=== PATIENT | female | born 1995 | race Caucasian/White ===

== ENCOUNTER 2016-08-17 11:19 | Emergency (ER) | payer MEDICAID ==
[~2016-08-17] VITALS: Ht 160 cm; Wt 60.0 kg
[~2016-08-17 11:19] MED LIST: BCP PO; NORE1TAB57 PO; ZOFR4TAB3 SL
[2016-08-17 11:29] VITALS: BP 136/68; PULSE 90; RESP 15; TEMP 99.1; O2SAT 100
[2016-08-17] MEDS ORDERED: CLIN1CAP5 PO (12:23)
--- NOTE | 2016-08-17 12:23 | PD ---
HPI Chief Complaint: Bite or Sting Time Seen by Provider: 12:19 Travel History International Travel<30 days: No Contact w/Intl Traveler<30days: No Traveled to known affect area: No History of Present Illness HPI Patient presents with concerns of an insect bite on her left upper forearm overnight. Reports pain upon awakening this morning with erythema around the bite. Denies nausea vomiting diarrhea or fever. Denies . PFSH Past Medical History Hx Anticoagulant Therapy: No Anxiety: Yes Cardiovascular Problems: No Chemotherapy: No Cerebrovascular Accident: No Developmental Delay: No Diabetes: No Diminished Hearing: No Endocrine: No Gastrointestinal Disorders: Yes (IBS) GERD: Yes Genitourinary: Yes (Frequent UTI's) Kidney Stones: Yes (Lithotripsy ) Musculoskeletal: No Neurologic: No Respiratory: No Immunizations Current: Yes Thyroid Disease: No Tetanus Vaccination: Unknown Influenza Vaccination: No ?: Unknown LMP: 3 WEEKS : 0 Past Surgical History Abdominal Surgery: Yes (LAPAROSCOPY) Cholecystectomy: Yes Genitourinary Surgery: Yes (KIDNEY STONES) Hysterectomy: No Other Surgery: Yes (gall bladder removed) Social History Alcohol Use: No Tobacco Use: No Substance Use: No Allergies-Medications (Allergen,Severity, Reaction): Coded Allergies: Sulfa (Verified Allergy, Severe, Rash, 08/17/16) Reported Meds & Prescriptions Reported Meds & Active Scripts Active Zofran Odt (Ondansetron Odt) 4 Mg Tab 4 Mg SL Q6HR PRN Reported Loestrin 1.5/30 (Norethindrone-Ethinyl Estradiol) 1.5-30 Mg-Mcg Tab 1 Tab PO DAILY [Bcp] 1 Tab PO DAILY Review of Systems General / Constitutional: No: Fever Eyes: No: Visual changes HENT: No: Headaches Cardiovascular: No: Chest Pain or Discomfort Respiratory: No: Shortness of Breath Gastrointestinal: No: Abdominal Pain Genitourinary: No: Dysuria Musculoskeletal: No: Pain Skin: No Rash Neurologic: No: Weakness Psychiatric: No: Depression Endocrine: No: Polydipsia Hematologic/Lymphatic: No: Easy Bruising Physical Exam Narrative GENERAL: Well-nourished, well-developed patient. SKIN: Warm and dry. HEAD: Normocephalic. EYES: No scleral icterus. No injection or drainage. NECK: Supple, trachea midline. No JVD or lymphadenopathy. CARDIOVASCULAR: Regular rate and rhythm without murmurs, gallops, or rubs. RESPIRATORY: Breath sounds equal bilaterally. No accessory muscle use. GASTROINTESTINAL: Abdomen soft, non-tender, nondistended. MUSCULOSKELETAL: No cyanosis, or edema. BACK: Nontender without obvious deformity. No CVA tenderness. Insect bite left upper forearm with surrounding erythema measuring approximately 4 cm Data Data Last Documented VS Vital Signs Date Time Temp Pulse Resp B/P Pulse Ox O2 Delivery O2 Flow Rate FiO2 08/17/16 11:29 99.1 90 15 136/68 100 MDM Medical Decision Making Medical Screen Exam Complete: Yes Emergency Medical Condition: Yes Differential Diagnosis Allergic reaction versus cellulitis versus abscess Narrative Course Assessment and plan discussed with patient and mother bedside Diagnosis Primary Impression: Cellulitis Qualified Code: L03.114 - Cellulitis of left upper extremity Patient Instructions: General Instructions Additional Instructions: Encouraged general wound care. Antibacterial soap and water 2 times per day. Oral ecchymotic as prescribed. With PCP symptoms do not improve. Med/Other Pt SpecificInfo: Prescription(s) given Scripts Clindamycin 150 Mg [id number] Mg PO BID #10 CAP Ref 0 Prov:Adrien Jefferson MD 08/17/16 Disposition: 01 DISCHARGE HOME Condition: Good Adrien Jefferson MD Aug 17, 2016 12:23
== END 2016-08-17 12:33 | disposition home or self-care (01) ==
LOC: PHEFT 11:19
DX: L03.114 Cellulitis of left upper limb (principal); W57.XXXA Bitten or stung by nonvenomous insect and other nonvenomous arthropods, initial encounter
CPT/HCPCS: 99282